=== PATIENT | female | born 1995 | race Caucasian/White ===

== ENCOUNTER 2016-10-30 03:17 | Emergency (ER) | payer SELFPAY ==
[~2016-10-30] VITALS: Ht 162.6 cm; Wt 122.5 kg
[2016-10-30 03:17] VITALS: BP 128/89
[~2016-10-30 03:17] MED LIST: BCP; FLUO40CA9 PO
[2016-10-30] MEDS ORDERED: SERT100T PO (03:44)
[2016-10-30] MEDS ORDERED: LEVO50TA5 PO (03:44)
[2016-10-30] MEDS ORDERED: OXYcodone/APAP 5/325MG TABLET ONE (04:19)
[2016-10-30] MEDS ORDERED: OXYcodone/APAP 5/325MG TABLET PO ONE (04:30)
== END 2016-10-30 04:34 | disposition left against medical advice (07) ==
LOC: ED 04:30
DX: N76.5 Ulceration of vagina (principal)
CPT/HCPCS: 99282